=== PATIENT | male | born 1940 | race Caucasian/White ===

== ENCOUNTER 2021-07-23 12:06 | Emergency (ER) | payer OTHER, MEDICARE ==
[~2021-07-23] VITALS: Ht 172.7 cm; Wt 59.9 kg
--- NOTE | 2021-07-23 12:06 | NUR ---
Dr Coughlin at the bedside for MSE.
[2021-07-23] MEDS ORDERED: ONDANSETRON 4 MG/2 ML VIAL ONE (12:14)
[2021-07-23] MEDS ORDERED: HYDROMORPHONE 1 MG/1 ML DISP.SYRIN IV ONE ×2 (12:15→14:30)
[2021-07-23] MEDS ORDERED: ONDANSETRON 4 MG/2 ML VIAL IV ONE (12:15)
[2021-07-23] MEDS ORDERED: HYDROMORPHONE 1 MG/1 ML DISP.SYRIN ONE ×2 (12:15→14:19)
[2021-07-23 12:48] LABS: *BILIRUBIN,URIN NEGATIVE (NEGATIVE); *CLARITY,URINE CLEAR (CLEAR); *COLOR,URINE YELLOW (YELLOW); *KETONES,URINE NEGATIVE (NEGATIVE); *UROBILINOGEN,URINE 0.2 E.U./dl (NORMAL); LEUKOCYTE ESTERASE ,URINE NEGATIVE (NEGATIVE); NITRITE, URINE NEGATIVE (NEGATIVE); PH,URINE 8.5 (5.0-8.0); UGLUCOSE NEGATIVE (NEGATIVE)
[2021-07-23 12:49] LABS: *BLOOD, URINE TRACE (NEGATIVE)
[2021-07-23 12:55] LABS: HEMATOCRIT 35.8 % (36.7-47.1); MEAN CORPUSCULAR HEMOGLOBIN 29.9 uug (23.8-33.4); MEAN CORPUSCULAR VOLUME 90.3 fL (73.0-96.2); PLATELET COUNT (AUTO) 175 K/uL (152-348)
[2021-07-23 13:04] LABS: CARBON DIOXIDE 31 mmol/L (21-32); CHLORIDE 103 mmol/L (98-107); CREATININE 0.7 mg/dL (0.6-1.3); GLUCOSE 95 mg/dL (74-106); POTASSIUM 3.7 mmol/L (3.5-5.1); UREA NITROGEN, BLOOD 19 mg/dL (7-18)
[2021-07-23 13:17] LABS: ALANINE AMINOTRANSFERASE 19 U/L (16-63); ALKALINE PHOSPHATASE 91 U/L (50-136); ASPARTATE AMINOTRANSFERASE 11 U/L (15-37); BILIRUBIN,DIRECT 0.2 mg/dL (0.0-0.2); BILIRUBIN,TOTAL 0.6 mg/dL (0.2-1.0); TOTAL PROTEIN, SERUM 6.5 g/dL (6.4-8.2)
[2021-07-23] MEDS ORDERED: IV NORMAL SALINE 250 ML IV ONE (13:18)
[2021-07-23] MEDS ORDERED: IOHEXOL 350 100 ML INFUS..BTL ONE (13:18)
[2021-07-23] MEDS ORDERED: SWABABLE VALVE TRANSFER SET EA MC ONE (13:18)
--- NOTE | 2021-07-23 13:20 | NUR ---
Pt signed consent CTAs IV contrast, placed in the chart.
--- NOTE | 2021-07-23 13:35 | NUR ---
Pt out of ER for Ct scan.
[2021-07-23] MEDS ORDERED: OXYC-132 PO (14:57)
[2021-07-23] MEDS ORDERED: PRED20TA PO (14:57)
[2021-07-23] MEDS ORDERED: LIDO30AD10 TP (14:57)
[2021-07-23] MEDS ORDERED: DEXAMETHASONE SOD PHOSPHATE 10 MG INJ ONE (14:57)
[2021-07-23] MEDS ORDERED: DEXAMETHASONE SOD PHOSPHATE 4 MG INJ IV ONE (15:00)
[2021-07-23] MEDS ORDERED: ONDA8TAB13 PO (15:04)
--- NOTE | 2021-07-23 15:40 | NUR ---
IV removed. Catheter intact and site benign. Pressure and 4x4 gauze applied to site. No bleeding noted.
--- NOTE | 2021-07-23 15:47 | NUR ---
Patient discharged to home in stable condition. Written and verbal after care instructions given. Patient verbalizes understanding of instructions. Stressed follow up or return to ER for worsening s/s.
[2021-07-23 15:53] VITALS: BP 115/61
[2021-07-23 17:19] LABS: BACTERIA,URINE NONE SEEN /HPF (NONE SEEN); SQUAMOUS EPITHELIAL CELL,UR FEW /HPF (NONE SEEN); WBC,URINE NONE SEEN /HPF (0-3)
== END 2021-07-23 15:50 | disposition home or self-care (01) ==
LOC: ER 12:06
DX: M54.16 Radiculopathy, lumbar region (principal); I70.0 Atherosclerosis of aorta; I25.2 Old myocardial infarction; E11.9 Type 2 diabetes mellitus without complications; Z79.899 Other long term (current) drug therapy
CPT/HCPCS: 36415; 71275; 74174; 80048; 80076; 81001; 83880; 84484; 85025; 93005; 96374; 96375; 96376; 99285; J1100; J1170 ×2; J2405; J7040; Q9967; A4663

== ENCOUNTER 2021-11-20 17:17 | Emergency (ER) | payer OTHER, MEDICARE ==
[~2021-11-20] VITALS: Ht 170.2 cm; Wt 61.8 kg
[~2021-11-20 17:17] MED LIST: LIDO30AD10 TP; ONDA8TAB13 PO; OXYC-132 PO; PRED20TA PO
[2021-11-20] MEDS ORDERED: NAPR-1009 PO (18:40)
--- NOTE | 2021-11-20 18:57 | NUR ---
Pt arrived with c/o of R knee pain, rated 6/10. X-ray done, no apparent fracture. Pt discharged to home in stable condition. Written and verbal after care instructions given. Pt verbalizes understanding of instructions. Stressed follow up or return to ER for worsening s/s.
== END 2021-11-20 18:55 | disposition home or self-care (01) ==
LOC: ER 17:19
DX: S76.911A Strain of unspecified muscles, fascia and tendons at thigh level, right thigh, initial encounter (principal); W01.0XXA Fall on same level from slipping, tripping and stumbling without subsequent striking against object, initial encounter; Y92.89 Other specified places as the place of occurrence of the external cause; M11.261 Other chondrocalcinosis, right knee; I25.2 Old myocardial infarction; I10 Essential (primary) hypertension; I25.10 Atherosclerotic heart disease of native coronary artery without angina pectoris; Z95.5 Presence of coronary angioplasty implant and graft; E11.9 Type 2 diabetes mellitus without complications
CPT/HCPCS: A4663